=== PATIENT | male | born 1995 | race African-American/Black ===

== ENCOUNTER 2017-09-08 08:37 | Emergency (ER) | payer SELFPAY ==
[~2017-09-08 08:37] MED LIST: CEPH500C3 PO; IBUP800T23 PO; WALKER STANDARD
[2017-09-08 08:39] VITALS: BP 140/98; PULSE 122; RESP 14; TEMP 98.5; O2SAT 98
[2017-09-08 08:52] VITALS: PULSE 108
--- NOTE | 2017-09-08 09:27 | PD ---
HPI Chief Complaint: Injury Time Seen by Provider: 09:26 Travel History International Travel<30 days: No Contact w/Intl Traveler<30days: No Traveled to known affect area: No History of Present Illness HPI 22-year-old male presents emergency Department with complaint of a diagnosed left third finger fracture a week and a half to 2 weeks ago that he reinjured this morning while playing with his daughter. Denies paresthesias, loss of sensation to the affected finger. Reports decreased range of motion and edema to the finger. Has not taken any medication or tried any treatments to alleviate his symptoms. Symptoms are moderate in severity. Describes pain as an aching sensation. Pain is aggravated with movement and palpation. Denies fever, vomiting. Allergies to motion. Has no other medical complaints. No other modifying factors or associated signs and symptoms. PFSH Past Medical History Diminished Hearing: No Immunizations Current: Yes Social History Alcohol Use: No Tobacco Use: No Substance Use: No Allergies-Medications (Allergen,Severity, Reaction): Coded Allergies: mushroom (Unverified Allergy, Severe, Anaphylaxis, 09/08/17) Reported Meds & Prescriptions Reported Meds & Active Scripts Active No Active Prescriptions or Reported Medications Review of Systems Except as stated in HPI: all other systems reviewed are Neg Physical Exam Narrative GENERAL: Well-nourished, well-developed black male patient, in no acute distress SKIN: Warm and dry. HEAD: Atraumatic. Normocephalic. EYES: Pupils equal and round. No scleral icterus. No injection or drainage. ENT: Mucosa pink and moist. Airway patent. NECK: Trachea midline. CARDIOVASCULAR: Regular rate. RESPIRATORY: No accessory muscle use. GASTROINTESTINAL: Flat. MUSCULOSKELETAL: Left third finger is edematous and with limited range of motion; without erythema or ecchymosis; sensory intact; less than 3 second cap refill; no obvious deformity. Left upper Ixodes supplemented for 2+ radial pulses and sensory intact without erythema or edema. No obvious deformities. No clubbing. No cyanosis. No edema. NEUROLOGICAL: Awake and alert. Oriented 3. No obvious cranial nerve deficits. Motor grossly within normal limits. Normal speech. PSYCHIATRIC: Appropriate mood and affect; insight and judgment normal. Data Data Last Documented VS Vital Signs Date Time Temp Pulse Resp B/P (MAP) Pulse Ox O2 Delivery O2 Flow Rate FiO2 09/08/17 10:14 Nasal Cannula 09/08/17 08:52 108 09/08/17 08:39 98.5 14 140/98 (112) 98 Orders Orders Ibuprofen (Motrin) (09/08/17 09:30) Finger ([id number]) (09/08/17 ) Bupivacaine Pf 0.5% Inj (Marcaine Pf 0.5 (09/08/17 10:30) Lidocaine 1% Inj (50 Ml) (Xylocaine 1% I (09/08/17 10:30) Acetamin-Hydrocod 325-5 Mg (Herald 5-325 (09/08/17 10:30) Splint Or Brace Apply/Monitor (09/08/17 10:30) Finger ([id number]) (09/08/17 ) MDM Medical Decision Making Medical Screen Exam Complete: Yes Emergency Medical Condition: Yes Medical Record Reviewed: Yes Differential Diagnosis Fracture, sprain, medical clearance Narrative Course 22-year-old male presents with a diagnosed left finger fracture a week and a half to 2 weeks ago at [facility] with reinjury today. Ibuprofen administered in the ER. Left third finger x-ray ordered. 1019: Left third finger x-ray concludes: Oblique displaced fracture through the third proximal phalanx. 1138: See my procedure note for finger reduction. Ulnar gutter splint placed. Postreduction x-ray ordered. Instructed patient to follow up with hand surgeon. Dr. Kindra Molina's information was provided for follow-up. Lortab and ibuprofen prescribed for home. Instructed patient to follow up with primary care provider. Patient verbalizes understanding and agreement with treatment plan. Patient is medically cleared and stable for discharge. Discussed reasons to return to the emergency department. Patient agrees with treatment plan. The patients vital signs are stable and the patient is stable for outpatient follow-up and treatment. Patient discharged home, stable and in no acute distress. Procedures Procedure Narrative Finger fracture reduction: The left third finger was digitally blocked with 1% lidocaine and 0.5% bupivacaine. Traction to the MCP joint and PIP joint was used simultaneously to reduce the fracture. Ulnar gutter splint applied. Post reduction x-ray ordered. Diagnosis Primary Impression: Finger fracture, left Qualified Codes: S62.613A - Displaced fracture of proximal phalanx of left middle finger, initial encounter for closed fracture Referrals: Kindra Molina MD Hand Surgeon Primary Care Physician Patient Instructions: Finger Fracture (ED), General Instructions Additional Instructions: Tylenol or ibuprofen as directed and as needed to reduce pain Rest, ice, compress, and elevate extremity to decrease pain and inflammation Splint for support; do not remove the splint until you follow-up with the hand surgeon Avoid aggravating activity; increase activity as tolerated Follow-up with primary care provider Follow-up with hand surgeon within one week; Dr. Kindra Molina, hand surgeons information has been provided in her discharge instructions; you can call and make appointment with her or hand surgeon of choice within 1-2 days Return to the emergency department immediately with worsening symptoms Med/Other Pt SpecificInfo: Prescription(s) given Scripts Hydrocodone-Acetaminophen (Lortab) 5-325 Mg Tab 1 TAB PO Q4H Y for PAIN, #15 TAB 0 Refills Prov: Yanet Whiting 09/08/17 Disposition: 01 DISCHARGE HOME Condition: Stable Yanet Whiting Sep 08, 2017 09:27
[2017-09-08] MEDS ORDERED: IBUPROFEN 800 MG TAB PO ONE (09:30)
[2017-09-08] MEDS ORDERED: IBUP800T23 PO (09:51)
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
[2017-09-08] MEDS ORDERED: ACETAMINOPHEN/HYDROcodone 325 MG/5 MG TAB PO ONE (10:30)
[2017-09-08] MEDS ORDERED: LIDOCAINE HCL 1% 50 ML VIAL INFIL ONE (10:30)
[2017-09-08] MEDS ORDERED: BUPIVACAINE HCL PF 0.5% 10 ML VIAL INFIL ONE (10:30)
[2017-09-08] MEDS ORDERED: HYDR-3533 PO (11:36)
--- NOTE | 2017-09-08 13:23 | RADRPT ---
EXAM DATE/TIME: 09/08/2017 12:28 [facility] COMPARISON: FINGER LEFT 3RD DIGIT ([id number]), September 08, 2017, 9:27. INDICATIONS : Post reduction 3rd finger. MEDICAL HISTORY : None. SURGICAL HISTORY : None. 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 The findings are improved when compared with the prior exam. CONCLUSION: 1. Fracture proximal phalanx third digit Savage Tadeo MD on September 08, 2017 at 13:21 Board Certified Radiologist. This report was verified electronically.
== END 2017-09-08 12:46 | disposition home or self-care (01) ==
LOC: NEPD 08:37
DX: S62.613A Displaced fracture of proximal phalanx of left middle finger, initial encounter for closed fracture (principal); X58.XXXA Exposure to other specified factors, initial encounter
CPT/HCPCS: 26725; 73140